=== PATIENT | male | born 1945 | race Caucasian/White ===

== ENCOUNTER → 2022-05-11 10:20 | Outpatient (CLI) | payer OTHER, SELFPAY ==
[2022-05-11 11:58] LABS: COVID19 -Nasal RAPID Negative (Negative)
== END ==
PROVIDERS: PCP Nurse Practitioner Family; Visit Provider Surgery
DX: Z01.812 Encounter for preprocedural laboratory examination (principal); Z20.822 Contact with and (suspected) exposure to COVID-19
CPT/HCPCS: 87635; C9803

== ENCOUNTER 2022-05-12 08:24 | Day surgery (SDC) | payer OTHER, SELFPAY ==
[2022-05-07 10:55] VITALS: BMI 25.2
[2022-05-12] VITALS (8 sets, daily range): BP systolic 108–160; BP diastolic 66–93; PULSE 59–73; RESP 10–16; TEMP 36.4–36.9; O2SAT 93–100; BMI 25.2
[2022-05-12] MEDS: LACTATED RINGERS 1,000 ML 100 ML IV ×3 (08:39→11:14)
--- NOTE | 2022-05-12 08:59 | PM.PREOP ---
Pre-operative Note COVID-19 COVID-19 status: Negative Result date/Date tested (Pos, Neg/Pending): 05/11/22 Interval Note History & Physical reviewed/Exam performed by Physician: Yes Changes to H&P: No ASA Class (for procedural sedation): II
[2022-05-12] MEDS: CEFAZOLIN 2 GM/100 ML PREMIX 100 ML IV (09:10)
--- NOTE | 2022-05-12 09:32 | SUR.OPER ---
Supine on non slipc pink pad on OR bed, head on pillow, arms padded and tucked at sides, legs uncrossed, safety belt at thigh, tape over blanket over lower legs .
[2022-05-12] MEDS: BUPIVACAINE 0.5% W/ EPI (PF) 30 ML VIAL INJ (09:41)
--- NOTE | 2022-05-12 11:21 | PM.OP.1 ---
Operative Date/Time/Diagnoses Date of procedure: 05/12/22 Time of procedure: 11:21 Pre-op diagnosis: Bilateral inguinal hernia Post-op diagnosis: same Procedure & Clinicians Procedure: Laparoscopic bilateral inguinal hernia Same procedure as scheduled: Yes Surgeon: Edd Taylor Chief Building Inspector: Marissa Fraire Anesthesia Type: General Operative Notes Findings: Large indirect right inguinal hernia and medium-sized direct left inguinal hernia Procedure in detail: The patient was given preoperative antibiotics. The patient was brought to the operating room, placed on the table in the supine position with the arms tucked and general anesthesia was induced. The abdomen was prepped and draped in the usual fashion. A time-out was performed. A 1 cm supraumbilical incision was created and dissection was carried down to the fascia. The fascia was scored transversely with cautery. A Peon clamp was used to peterson the peritoneum. The Babita port was placed and the abdomen was insufflated to 15 mmHg. The camera was inserted, there was no evidence of any injury from the entry. 5 mm ports were placed under direct vision in the mid left and mid right abdomen. The patient was positioned in steep Trendelenburg. We started on the right side. We created a right peritoneal flap. The peritoneum was dissected off the cord structures. A large right Bard mesh was brought in and placed over the defect with the medial edge against Tristen's ligament. We then closed the peritoneal flap with a running 3-0 barbed suture. Next we turned our attention to the left side. The peritoneum was dissected off the left cord structures. A a medium left Bard mesh was brought in and placed over the defect with the medial edge against Tristen's ligament. We then closed the peritoneal flap with a running 3-0 barbed suture. We took one last look around the abdomen and saw no other abnormalities. The suture was removed and accounted for. The 5 mm ports were removed under direct vision. The abdomen was desufflated. The Babita port was removed. Additional local was injected into the fascia and the infraumbilical fascial incision was closed with 2 interrupted 0 Vicryl sutures. The skin incisions were closed with 4 Monocryl, Steri-Strips and Band-Aids. Dr. Fraire provided assistance with exposure, dissection and placement of mesh. This facilitated the safe and effective repair of bilateral hernias. Post-operative Disposition: PACU
[2022-05-12] MEDS: OXYCODONE IR 5 MG TABLET PO (11:23)
[2022-05-12] MEDS: ONDANSETRON 4 MG/2 ML INJ IV (11:23)
--- NOTE | 2022-05-12 11:36 | SUR.PHASEI ---
Assumed care from PERFECTO Christie. Pt rates pain 5/10.
== END 2022-05-12 12:35 | disposition home or self-care (01) ==
PROVIDERS: PCP Nurse Practitioner Family; Referring Provider Surgery; Visit Provider Surgery
PROC: 0YQ64ZZ Repair Left Inguinal Region, Percutaneous Endoscopic Approach (ICD-10-PCS; CPT 49650; principal; 2022-05-12 09:45)
DX: K40.20 Bilateral inguinal hernia, without obstruction or gangrene, not specified as recurrent (principal)
CPT/HCPCS: 49650; 00830; J0330; J0360; J0690; J1100; J2250; J2405; J2704; J3010